=== PATIENT | male | born 1950 | race Caucasian/White ===

== ENCOUNTER 2024-01-19 07:25 | Inpatient (IN) | payer MEDICARE, SELFPAY ==
[2024-01-19] VITALS (16 sets, daily range): BP systolic 98–186; BP diastolic 62–93; PULSE 71–96; RESP 13–24; TEMP 36.6–37.1; O2SAT 92–99
--- NOTE | ~2024-01-19 | CT_ITS ---
EXAMINATION: CT abdomen pelvis w con DATE: 01/19/2024 08:14 INDICATION: Lower quadrant abdominal pain and nausea TECHNIQUE: Computed tomography (CT) of the abdomen and pelvis was performed with 100 mL Omnipaque-350 intravenous contrast. Automated exposure control and iterative reconstruction technique were employe d. The dose-length product was 1260.11 mGy-cm. COMPARISON: None FINDINGS: Mild discoid atelectasis at the anterobasilar left lower lobe. Heart size is normal. Atherosclerotic coronary artery calcifications. No pericardial or pleural effusion. Diffuse hepatic steatosis. Gallbl adder, spleen, pancreas, bilateral adrenal glands are normal. Couple small bilateral renal cysts the larger on the right measuring 6 mm. There is moderate colonic diverticulosis with a sigmoid predomina nce. There is no adjacent inflammatory change to suggest diverticulitis. No bowel obstruction. There is periappendiceal inflammatory stranding and nearby 2.5 x 1.9 x 1.0 cm nonorganized appearing fluid collection consistent with acute appendicitis. No abscess or free intraperitoneal gas. Prostatomegaly . Bladder is normal. No pathologically enlarged abdominal or pelvic lymphadenopathy. Mild lumbar and lower thoracic spondylosis. IMPRESSION: 1. Acute appendicitis. Reviewed, dictated and finalized at location A. IMPRESSION: 1. Acute appendicitis.
[2024-01-19 07:46] LABS: Basophils Percent Auto 0.2 % (0.2-1.2); Hematocrit 45.1 % (42.0-52.0); Hemoglobin 15.3 g/dL (14.0-18.0); Immature Granulocyte Absolute 0.06 K/mm3 (0.00-0.031); Immature Granulocyte Percent A 0.5 % (0-0.5); Lymphocytes Absolute Auto 0.46 K/mm3 (0.9-3.2); Lymphocytes Percent Auto 3.6 % (18.3-44.2); Mean Corpuscular HGB Conc 33.9 g/dl (32-36); Mean Corpuscular Hemoglobin 29.2 pg (26-34); Mean Corpuscular Volume 86.1 fl (80-100); Mean Platelet Volume 9.9 fl (7.4-10.4); Monocytes Absolute Auto 0.8 K/mm3 (0.1-0.6); Monocytes Percent Auto 6.1 % (2.6-8.5); Neutrophils Absolute Auto 11.4 K/mm3 (1.3-6.7); Neutrophils Percent Auto 89.6 % (45.5-73.1); Platelet Count Result 227 k/mm3 (150-375); Red Blood Count 5.24 M/mm3 (4.6-6.20); Red Cell Distribution Width 12.6 % (11.5-14.5); White Blood Count 12.8 K/mm3 (4.5-10.0)
[2024-01-19 07:56] LABS: Alanine Aminotransferase 17 U/L (6-50); Albumin Level 4.8 g/dL (3.5-5.1); Alkaline Phosphatase 69 U/L (38-126); Anion Gap 12 mmol/L (4-12); Aspartate Amino Transferase 22 U/L (17-59); Bilirubin,Total 2.2 mg/dL (0.2-1.3); Blood Urea Nitrogen 15 mg/dL (9-20); Calcium 9.1 mg/dL (8.4-10.2); Carbon Dioxide 24 mmol/L (22-30); Chloride 100 mmol/L (98-107); Estimated CRCL calculation 93 ml/min; Estimated Glomerular Filt Rate > 60; Glucose 153 mg/dL (65-110); Lipase 53 U/L (23-300); Potassium 3.9 mmol/L (3.4-5.0); Sodium 136 mmol/L (137-145)
--- NOTE | 2024-01-19 07:59 | ED.ABDPAIN ---
HPI - Abdominal Pain General Chief Complaint: Abdominal Pain Stated Complaint: right lower abdominal pain Time Seen by Provider: 01/19/24 07:26 History of Present Illness HPI narrative: Patient is a 73-year-old male who presents the ER with right lower quadrant abdominal pain. Ongoing for 2 days. Sharp. Worse with movement. Better with rest. No urinary symptoms. No GI symptoms. Denies fevers or chills. No known injury. No radiation. Related Data Allergies Allergy/AdvReac Type Severity Reaction Status Date / Time No Known Allergies Allergy Mild Unverified 03/17/18 10:08 Review of Systems Review of Systems: All systems reviewed & are unremarkable except as noted in HPI and below Constitutional: Constitutional: Reports no additional constitutional complaints ENT: Reports system reviewed and no additional complaints, except as documented Cardiovascular: Cardiovascular: Reports no additional cardiovascular complaints Respiratory: Respiratory: Reports no additional respiratory complaints Gastrointestinal: Gastrointestinal: Reports abdominal pain, Denies constipation, Denies diarrhea, Denies nausea and Denies vomiting Genitourinary: Genitourinary: Reports no additional male genitourinary complaints PMFSH Past Medical History Medical History (Updated 01/19/24 @ 18:06 by Gilmar Muñiz MD) Hypertension Obesity Surgical History Surgical History H/O excision of ganglion cyst Exam Narrative: GENERAL: Well-appearing, well-nourished, and in no acute distress. HEAD: Normocephalic, atraumatic. ENT: Mucous membranes moist. CHEST: Clear to auscultation. No respiratory distress. HEART: Regular rate and rhythm. Normal peripheral pulses. ABDOMEN: Soft, TTP to the RLQ, nondistended. EXTREMITIES: Normal range of motion. No edema. SKIN: Warm, dry, no rash. NEURO: Alert and oriented x3. PSYCH: Normal mood and affect. Course Course Emergency Course: Informed of results. Discussed with surgery. IV zosyn. OR today. Patient NPO since last night. Vital Signs Vital signs: Vital Signs Temperature 98.8 F 01/19/24 07:29 Pulse Rate 94 01/19/24 07:29 Respiratory Rate 20 01/19/24 07:29 Blood Pressure 153/63 H 01/19/24 07:29 Pulse Oximetry 97 01/19/24 07:29 Oxygen Delivery Room Air 01/19/24 07:29 Temperature 98 F 01/19/24 17:56 Pulse Rate 92 01/19/24 17:56 Respiratory Rate 14 01/19/24 17:56 Blood Pressure 149/75 H 01/19/24 17:56 Pulse Oximetry 99 01/19/24 17:56 Oxygen Delivery Simple Face Mask 01/19/24 17:56 Oxygen Flow Rate 10 01/19/24 17:56 MDM - Abdominal Pain Lab Data 01/19/24 07:37 01/19/24 07:37 Labs: Lab Results 01/19/24 01/19/24 Range/Units 07:37 08:40 WBC 12.8 H (4.5-10.0) K/mm3 RBC 5.24 (4.6-6.20) M/mm3 Hgb 15.3 (14.0-18.0) g/dL Hct 45.1 (42.0-52.0) % MCV 86.1 (80-100) fl MCH 29.2 (26-34) pg MCHC 33.9 (32-36) g/dl RDW 12.6 (11.5-14.5) % Plt Count 227 (150-375) k/mm3 MPV 9.9 (7.4-10.4) fl Immature Gran % (Auto) 0.5 (0-0.5) % Neut % (Auto) 89.6 H (45.5-73.1) % Lymph % (Auto) 3.6 L (18.3-44.2) % [place] % (Auto) 6.1 (2.6-8.5) % Eos % (Auto) 0.0 (0-4.4) % Baso % (Auto) 0.2 (0.2-1.2) % Lymph # (Auto) 0.46 L (0.9-3.2) K/mm3 [place] # (Auto) 0.8 H (0.1-0.6) K/mm3 Eos # (Auto) 0.0 (0-0.3) K/mm3 Baso # (Auto) 0.0 (0.0-0.1) K/mm3 Abs Immat Gran (auto) 0.06 H (0.00-0.031) K/mm3 Absolute Neuts (auto) 11.4 H (1.3-6.7) K/mm3 Absolute Nucleated RBC 0.000 (0.0-0.012) K/mm3 Nucleated RBC % 0.0 (0.0-0.2) % Sodium 136 L (137-145) mmol/L Potassium 3.9 (3.4-5.0) mmol/L Chloride 100 (98-107) mmol/L Carbon Dioxide 24 (22-30) mmol/L Anion Gap 12 (4-12) mmol/L BUN 15 (9-20) mg/dL Creatinine 0.80 (0.7-1.3) mg/dL Estim Creat Clear Calc 93 ml/min Estimated G
[2024-01-19 08:50] LABS: Appearance Urine Clear (Clear); Bilirubin Urine Negative (Negative); Blood Urine Negative (Negative); Color Urine Yellow (Yellow); Glucose Urine UA Negative (Negative); Ketones Urine 1+ mg/dL (Negative); Leukocyte Esterase Ur Negative LEU/UL (Negative); Nitrate Urine Negative (Negative); Protein Urine Negative (Negative); Specific Grav Ur 1.036 (1.001-1.035)
[2024-01-19 08:54] LABS: Add Urine Microscopic? NO
--- NOTE | 2024-01-19 10:12 | PM.IMHP ---
H&P: HPI History of Present Illness Date/Time: 01/19/24 10:12 Chief Complaint: Acute appendicitis Narrative: The patient is a 73-year-old male presenting to the emergency department complaining lower, right greater left. Patient reports pain started yesterday and been progressively worsening. The patient reports the pain was more diffuse in nature beginning, but now is localized right quadrant. The patient reports associated poor appetite and nausea. Patient denies any fevers chills. Patient denies previous episodes. Workup, including imaging, significant for acute appendicitis. Review of Systems Review of Systems: All systems reviewed & are unremarkable except as noted in HPI and below PMFSH Past Medical History Medical History (Updated 01/19/24 @ 10:15 by Kamini Baires MD) Hypertension Surgical History Surgical History H/O excision of ganglion cyst Meds Home Medications and Allergies Allergies Allergy/AdvReac Type Severity Reaction Status Date / Time No Known Allergies Allergy Mild Unverified 03/17/18 10:08 Vital Signs Vital Signs - 24 hr 01/19/24 07:29 01/19/24 08:42 Temperature 37.1 C Pulse Rate 94 92 Respiratory Rate 20 24 H Blood Pressure 153/63 H 186/90 H Pulse Oximetry 97 98 Oxygen Delivery Room Air Exam Const: General: cooperative, acute distress mild, tired appearing and uncomfortable HENMT: Head: normal to inspection, normocephalic and atraumatic Eyes: General: appearance normal, both eyes and all related structures Neck: Neck: normal visual inspection, full ROM and no lymphadenopathy Resp: Auscultation: clear to auscultation bilaterally Cardio: Rate: regular rate Rhythm: regular rhythm GI: Inspection: normal to inspection and distended GI Palp: Yes abdominal tenderness, Yes Soft to palpation, Yes Tenderness to palpation present (GI), Yes Guarding due to palpation present (GI) and No Rigid due to palpation Back/Spine/Pelvis: Back: no CVA tenderness Skin: General skin exam: normal color and no rashes or lesions noted Neuro: General: patient oriented x3 and CN's II-XI intact bilaterally Extrem: General: normal to inspection and full ROM H&P: Results Labs Labs: Short CBC 01/19/24 Range/Units 07:37 WBC 12.8 H (4.5-10.0) K/mm3 Hgb 15.3 (14.0-18.0) g/dL Hct 45.1 (42.0-52.0) % Plt Count 227 (150-375) k/mm3 BMP 01/19/24 07:37 Sodium 136 L Potassium 3.9 Chloride 100 Carbon Dioxide 24 BUN 15 Creatinine 0.80 Glucose 153 H Calcium 9.1 Liver Function 01/19/24 Range/Units 07:37 Total Bilirubin 2.2 H (0.2-1.3) mg/dL AST 22 (17-59) U/L ALT 17 (6-50) U/L Alkaline Phosphatase 69 (38-126) U/L Albumin 4.8 (3.5-5.1) g/dL Urine 01/19/24 Range/Units 08:40 Urine Color Yellow (Yellow) Urine Appearance Clear (Clear) Urine pH 5.0 (5.0-9.0) Ur Specific [place] 1.036 H (1.001-1.035) Urine Protein Negative (Negative) mg/dL Urine Glucose (UA) Negative (Negative) mg/dL Imaging CT scan - abdomen: My impression: Acute appendicitis with some surrounding free fluid Assessment and Plan Assessment and plan (1) Acute appendicitis: Code(s): K35.80 - Unspecified acute appendicitis Status: Acute Assessment and Plan: NPO, IV antibiotics, IV fluids, OR for emergent appendectomy (2) Hypertension: Code(s): I10 - Essential (primary) hypertension Status: Acute Assessment and Plan: stable, continue medications
--- NOTE | 2024-01-19 10:16 | WPDHPUPDATE1 ---
History and Physical Update Update Date/Time: 01/19/24 10:16 History and Physical has been reviewed, including an updated exam of the patient. There are NO changes in the patient's condition. Risks, benefits, and alternatives have been discussed and questions answered. Patient agrees to proceed with procedure.
[2024-01-19] MEDS: PIPERACILLN/TAZ 3.375GM/NS50ML 3.375 GM/50 ML BAG IVPB ×3 (10:46→22:16)
[2024-01-19] MEDS: LACTATED RINGERS 1,000 ML 30 ML IV CONT ×2 (13:25→17:56)
--- NOTE | 2024-01-19 14:45 | WPDANESEPPF ---
Anes - Initial Pre Proc Eval Procedure: Operation Date: 01/19/24 15:00 Proposed Procedures p Laparoscopic Appendectomy - Kamini Baires MD Date/Time: 01/19/24 14:45 Surgeon: Kamini Baires MD Pre Op Diagnosis: right lower abdominal pain Patient Data Age: 73 Gender: M Height: 1.8 m Weight: 112.2 kg Last Vital Signs Temp 37.0 C 01/19/24 12:45 Pulse 96 01/19/24 12:45 Resp 23 H 01/19/24 12:12 BP 155/72 H 01/19/24 12:45 Pulse Ox 97 01/19/24 12:45 O2 Del Method Autopap 01/19/24 12:45 Allergies Allergy/AdvReac Type Severity Reaction Status Date / Time No Known Allergies Allergy Mild Unverified 03/17/18 10:08 Laboratory Tests 01/19/24 01/19/24 07:37 08:40 WBC 12.8 H K/mm3 (4.5-10.0) RBC 5.24 M/mm3 (4.6-6.20) Hgb 15.3 g/dL (14.0-18.0) Hct 45.1 % (42.0-52.0) MCV 86.1 fl (80-100) MCH 29.2 pg (26-34) MCHC 33.9 g/dl (32-36) RDW 12.6 % (11.5-14.5) Plt Count 227 k/mm3 (150-375) MPV 9.9 fl (7.4-10.4) Immature Gran % (Auto) 0.5 % (0-0.5) Neut % (Auto) 89.6 H % (45.5-73.1) Lymph % (Auto) 3.6 L % (18.3-44.2) [place] % (Auto) 6.1 % (2.6-8.5) Eos % (Auto) 0.0 % (0-4.4) Baso % (Auto) 0.2 % (0.2-1.2) Lymph # (Auto) 0.46 L K/mm3 (0.9-3.2) [place] # (Auto) 0.8 H K/mm3 (0.1-0.6) Eos # (Auto) 0.0 K/mm3 (0-0.3) Baso # (Auto) 0.0 K/mm3 (0.0-0.1) Abs Immat Gran (auto) 0.06 H K/mm3 (0.00-0.031) Absolute Neuts (auto) 11.4 H K/mm3 (1.3-6.7) Absolute Nucleated RBC 0.000 K/mm3 (0.0-0.012) Nucleated RBC % 0.0 % (0.0-0.2) Sodium 136 L mmol/L (137-145) Potassium 3.9 mmol/L (3.4-5.0) Chloride 100 mmol/L (98-107) Carbon Dioxide 24 mmol/L (22-30) Anion Gap 12 mmol/L (4-12) BUN 15 mg/dL (9-20) Creatinine 0.80 mg/dL (0.7-1.3) Estim Creat Clear Calc 93 ml/min Estimated GFR > 60 (59 - ) Glucose 153 H mg/dL (65-110) Calcium 9.1 mg/dL (8.4-10.2) Total Bilirubin 2.2 H mg/dL (0.2-1.3) AST 22 U/L (17-59) ALT 17 U/L (6-50) Alkaline Phosphatase 69 U/L (38-126) Total Protein 8.0 g/dL (6.3-8.2) Albumin 4.8 g/dL (3.5-5.1) Lipase 53 U/L (23-300) Urine Color Yellow (Yellow) Urine Appearance Clear (Clear) Urine pH 5.0 (5.0-9.0) Ur Specific [place] 1.036 H (1.001-1.035) Urine Protein Negative mg/dL (Negative) Urine Glucose (UA) Negative mg/dL (Negative) Urine Ketones 1+ H mg/dL (Negative) Ur Blood (Man) Negative (Negative) Urine Nitrate Negative (Negative) Urine Bilirubin Negative (Negative) Urine Urobilinogen 1.0 mg/dL (<2.0) Leukocyte Esterase Rfl Negative BONITA/UL (Negative) Patient hx anesthesia problems: none Family hx anesthesia problems: none Results Review: All pre-operative results and documents have been reviewed as part of the pre-operative evaluation. [facility] Past Medical History Medical History (Updated 07/22/24 @ 14:45 by Rodrigue Valenzuela MD) Hypertension Obesity Surgical History Surgical History H/O excision of ganglion cyst Anes - Eval Final PreProcedure Day of Procedure 01/19/24 14:45 Patient weight: obese Lungs: clear to auscultation Airway: Mallampati scale class II Neurological: alert and oriented Last oral intake: >/= 8 hours ASA classification: III Emergent: no Anesthetic plan: proceed Anesthesia type and monitoring: general ETT and standard monitoring Results Review: All pre-operative results and documents have been reviewed as part of the pre-operative evaluation. Informed Consent: The patient's anesthetic plan and its attendant risks and benefit
[2024-01-19] MEDS: BUPIVACAINE/EPINEPHRINE 0.5% 50 ML VIAL 30 ML INFILTRATE (16:36)
[2024-01-19] MEDS: KETOROLAC 30 MG/ML VIAL (*BKC) IV PUSH (17:37)
--- NOTE | 2024-01-19 17:50 | P.OP_ITS ---
Procedure Note - Detailed Date of Procedure 01/19/24 Pre-op Diagnosis acute appendicitis Post-op Diagnosis Other ( acute perforated appendicitis) Procedure Performed laparoscopic appendectomy, extensive lysis of adhesions Surgeon Kamini Baires MD Anesthesia General and Local Indications 73-year-old male presenting to the emergency department complaining lower abdominal pain. Workup, including imaging, is significant for acute appendicitis with surrounding luciano appendiceal fluid. Findings Acute perforated appendicitis with free fluid, retrocecal appendix was severe inflammation of the terminal ileum, left lower quadrant adhesions from likely previous diverticulitis Description of Procedure The patient was taken to the operating room and placed in the supine position. After adequate induction of general anesthesia, the patient was prepped and draped in the normal sterile fashion. A time-out was then done to verify the patient's identity, as well as the procedure being performed. I began by making a 5 mm incision in the infraumbilical region, through this a Veress needle was placed in the peritoneal cavity. CO2 gas was then insufflated and after adequate pneumoperitoneum was achieved the Veress needle was removed. Then placed a 5 mm Optiview trocar under direct visualization into the peritoneal cavity. I then insufflated through this trocar site and the endoscope was placed into the trocar. Under direct visualization, I placed further 5 mm supraumbilical port. There was noted to be a large amount of adhesions to the left lower quadrant likely secondary to previous diverticulitis. Given that I needed to place a trocar at this site, I took down these adhesions both sharply and bluntly with the Bovie cautery. I was then able to place a 12 mm left lower quadrant port under direct visualization. At this point I identified the cecum and noted that there was a lot of inflammation to the lateral right sidewall. The terminal ileum was densely adhered to this area as well. Using very careful and tedious dissection, I slowly took down terminal ileum from the right lateral sidewall. Upon removing the terminal ileum from the area, a moderate amount of free purulent fluid was noted. This was suctioned away. There was a large amount of inflammation in this area and it was noted that the appendix was likely retrocecal. I was able to locate the base of the appendix with the cecum. I was able to create a window between the appendix and the mesoappendix in this area. The appendix was then transected with a blue staple load. Upon following this down retrocecal, it was noted that the appendix was largely obliterated. Given these findings, I just removed the portion of the appendix that I could definitively visualize. I then placed a 15 Swedish ARISTEO drain in the right lower quadrant coming out through the right lower quadrant under direct visualization. I then desufflated the abdomen. The fascia of the 12 mm port site was closed with an 0 Vicryl [id number] suture. All port sites were closed with 4-0 Monocryl subcuticular suture. Dermabond was placed on all wounds. The patient tolerated the procedure well and will be transferred to the recovery room in stable condition. Please note that given the difficulty with the lysis of adhesions, inflammation, retrocecal appendix that this case was much more difficult than the average appendectomy and took approximately 3 times longer. Estimated Blood Loss 20 Drains No Packing No Pathology Yes Complications No immediate complications Condition Stable Disposition PACU [facility] Billing Surgery - Charge Forward: Surgery Billing
[2024-01-19] MEDS: LACTATED RINGERS 1,000 ML 100 ML IV CONT (22:10)
[2024-01-19] MEDS: FAMOTIDINE 20 MG/2 ML VIAL IV PUSH (22:10)
[2024-01-20 02:03] VITALS: BP 111/53; PULSE 59; RESP 18; TEMP 36.3; O2SAT 97
[2024-01-20 05:01] VITALS: BP 140/65; PULSE 58; RESP 20; TEMP 36.7; O2SAT 96
[2024-01-20] MEDS: PIPERACILLN/TAZ 3.375GM/NS50ML 3.375 GM/50 ML BAG IVPB ×2 (05:15→11:23)
[2024-01-20 06:20] LABS: Hematocrit 36.6 % (42.0-52.0); Hemoglobin 12.5 g/dL (14.0-18.0); Mean Corpuscular HGB Conc 34.2 g/dl (32-36); Mean Corpuscular Hemoglobin 29.7 pg (26-34); Mean Corpuscular Volume 86.9 fl (80-100); Platelet Count Result 177 k/mm3 (150-375); Red Blood Count 4.21 M/mm3 (4.6-6.20); Red Cell Distribution Width 12.7 % (11.5-14.5); White Blood Count 13.9 K/mm3 (4.5-10.0)
[2024-01-20 06:31] LABS: Anion Gap 6 mmol/L (4-12); Blood Urea Nitrogen 18 mg/dL (9-20); Calcium 8.7 mg/dL (8.4-10.2); Carbon Dioxide 29 mmol/L (22-30); Chloride 100 mmol/L (98-107); Estimated CRCL calculation 77 ml/min; Estimated Glomerular Filt Rate > 60; Glucose 137 mg/dL (65-110); Potassium 3.9 mmol/L (3.4-5.0); Sodium 135 mmol/L (137-145)
[2024-01-20 09:01] VITALS: BP 135/78; PULSE 66; RESP 16; TEMP 36.6; O2SAT 100
[2024-01-20] MEDS: FAMOTIDINE 20 MG/2 ML VIAL IV PUSH (09:25)
[2024-01-20] MEDS: ENOXAPARIN 40 MG/0.4 ML SYRINGE SUB-Q (09:25)
[2024-01-20] MEDS: LACTATED RINGERS 1,000 ML 100 ML IV CONT (09:31)
[2024-01-20 13:01] VITALS: BP 141/76; PULSE 68; RESP 18; TEMP 36.5; O2SAT 94
--- NOTE | 2024-01-22 09:07 | PM.DS ---
DS: Admitting Diagnosis Discharge Date 01/20/24 Admitting Diagnosis Acute appendicitis DS: Discharge Diagnosis Discharge Diagnosis (1) Acute perforated appendicitis: Code(s): K35.32 - Acute appendicitis with perforation, localized peritonitis, and gangrene, without abscess Status: Acute Assessment and Plan: status post appendectomy, drain removed at bedside, home with p.o. antibiotics and analgesia, follow-up 2 weeks DS: Summary Hospital Course Reason for hospitalization: acute perforated appendicitis Hospital Course: The patient is a 73-year-old male presenting to the emergency department complaining of lower abdominal pain. Workup, including imaging, was significant for acute appendicitis. The patient was emergently taken to the operating room that afternoon and laparoscopic appendectomy was performed. During the procedure, it was noted that the patient had a perforation the appendix with a large amount of the appendix actually oblique. Please see full operative report for details. The patient had a drain left and was admitted postoperatively for continued IV antibiotics. On postoperative day 1. , the patient reports that he felt much better and was able to tolerate a diet. He was up and ambulating without issue. He reports his pain is well controlled with p.o. analgesia. Given these findings, the drain was removed and the patient will be discharged home with p.o. antibiotics and analgesia. He will be sent home with instructions for local wound care. He will follow up with me in 2 weeks. Status at Discharge Functional status at discharge: independent ambulation Overall status at discharge: patient is progressing back to baseline Time Spent with Patient Time attestation: Total time spent providing and/or coordinating discharge services: Exam Const: General: cooperative, comfortable and no acute distress Resp: Auscultation: clear to auscultation bilaterally Cardio: Rate: regular rate Rhythm: regular rhythm GI: Inspection: normal to inspection, distended and incision GI Palp: Yes abdominal tenderness and Yes Soft to palpation DS: Data Data Completed and Pending Completed studies during hospitalization: Pending at discharge 01/19/24 16:51 Surgical [PTH] Routine Discharge Plan Discharge Attending physician on discharge: Kamini Baires Consulting providers: Hasmukh Boogie; Rodrigue Valenzuela Discharging Clinician: Kamini Baires Patient Disposition: Home, Self-Care Activity: may shower and as tolerated Diet: as tolerated Wound Care Instructions: incision open to air Discharge Instructions: DISCHARGE INSTRUCTION SHEET FOR HERNIA, GALLBLADDER AND APPENDIX SURGERIES DR. BAIRES PATIENT TO TAKE HOME 1. May shower in 24 hours, no soaking in bath x 2weeks. 2. Call office for: Wound increasingly painful or bleeding Vomiting Fever of greater than 101 degrees 3. If no bowel movement for three days, take 1 oz. (30 ml) Milk of Magnesia or MiraLax 17g 1 to 2 times daily. 4. No heavy lifting > 10-15 pounds x 6 weeks for hernia repairs and 2 weeks for laparoscopic cholecystectomy or appendectomy. 5. No driving for 3 days or while taking narcotic pain medications. 6. Ice to surgical site for 48 hours (30 min on, then 30 min off). 7. Up walking 10-30 minutes three times per day. 8. Resume previous home medications. 9. Follow-up 10-14 days in office for wound check or as previously scheduled. ([id number]) 10. Oral pain medications prescription to be sent to pharmacy. Take Tylenol 500mg every 6 hours and Ibuprofen 600mg every 6 hours for the first 2 days, then as needed. 11. NUTRITION: Start out by drinking fluids and increase your diet as tolerated. If you experience nausea, try dry toast, crackers, and 7-UP. If nausea or vomiting persists, contact your surgeon?s office. 12. Gallbladders-Low Fat
== END 2024-01-20 14:04 | disposition home or self-care (01) | DRG 337 ==
LOC: ANHED 08:59 → ANHSURGERY 09:52 → ANH3MEDSUR 19:45
PROVIDERS: Admitting Provider Surgery; Emergency Provider Emergency Medicine; PCP Internal Medicine; Visit Provider Surgery
PROC: 0DTJ4ZZ Resection of Appendix, Percutaneous Endoscopic Approach (ICD-10-PCS; CPT 44970; principal; 2024-01-19 15:00)
DX: K35.32 Acute appendicitis with perforation, localized peritonitis, and gangrene, without abscess (principal); I10 Essential (primary) hypertension; E66.9 Obesity, unspecified
CPT/HCPCS: 36415; 74177; 80048; 80053; 81003; 83690; 85025; 85027; 88304; 96361; 96365; 96375; 96376; 99285; J1100; J1170; J1650; J1885; J2250; J2405; J2543; J3010; J7030; J7120; Q9967

== ENCOUNTER 2025-02-23 00:18 | Day surgery (SDC) | payer MEDICARE, SELFPAY ==
[2025-02-08 14:46] VITALS: BMI 35.4
[2025-02-23 06:21] VITALS: BP 160/91; PULSE 72; RESP 16; TEMP 36.2; O2SAT 96; BMI 37.3
[2025-02-23] MEDS: LACTATED RINGERS 1,000 ML 150 ML IV CONT (06:34)
--- NOTE | 2025-02-23 07:31 | WPDANESEPPF ---
Anes - Initial Pre Proc Eval Procedure: Operation Date: 02/23/25 07:30 Proposed Procedures p Screening Colonoscopy - Eliecer Rodriguez MD Date/Time: 02/23/25 07:31 Surgeon: Eliecer Rodriguez MD Pre Op Diagnosis: Screening,personal hx of colon polyps Patient Data Age: 74 Gender: M Height: 1.75 m Weight: 114.7 kg Last Vital Signs Temp 97.1 F L 02/23/25 06:21 Pulse 72 02/23/25 06:21 Resp 16 02/23/25 06:21 BP 160/91 H 02/23/25 06:21 Pulse Ox 96 02/23/25 06:21 O2 Del Method Room Air 02/23/25 06:21 Allergies Allergy/AdvReac Type Severity Reaction Status Date / Time No Known Allergies Allergy Mild Verified 02/23/25 06:20 Home Medications ?Medication ?Instructions ?Recorded ?Confirmed ?Type aspirin 81 mg chewable tablet 81 mg PO DAILY 01/19/24 02/23/25 History lisinopril 20 mg tablet 20 mg PO DAILY 01/19/24 02/23/25 History Patient hx anesthesia problems: none Family hx anesthesia problems: none Results Review: All pre-operative results and documents have been reviewed as part of the pre-operative evaluation. COUNT INCLUDES THE [facility] Past Medical History Medical History Hypertension Obesity Surgical History Surgical History H/O excision of ganglion cyst History of laparoscopic appendectomy laparoscopic appendectomy, extensive lysis of adhesions 01/19/24 Social History Social History (Updated 02/03/24 @ 09:59 by Lily Wells RN) Years smoked: 50 Smoking status: Never smoker Tobacco type: cigarettes Alcohol intake: current Alcohol use details: 6 per year Substance use: never Substance use type: does not use Living arrangements: with family Spiritual care concerns: No Anes - Eval Final PreProcedure Day of Procedure 02/23/25 07:31 Patient weight: obese Heart: regular rate and rhythm Lungs: clear to auscultation Airway: Mallampati scale class II Neurological: alert and oriented Last oral intake: >/= 8 hours ASA classification: II Emergent: no Anesthetic plan: proceed Anesthesia type and monitoring: general GIVS and standard monitoring Results Review: All pre-operative results and documents have been reviewed as part of the pre-operative evaluation. Informed Consent: The patient's anesthetic plan and its attendant risks and benefits were discussed with the patient/family/POA. Questions were solicited and answers provided to the satisfaction of the patient/family/POA.
--- NOTE | 2025-02-23 07:32 | PM.IMHP ---
H&P: HPI History of Present Illness Date/Time: 02/23/25 07:32 Chief Complaint: Screening colonoscopy Narrative: This is the patient's second colonoscopy. There are no GI symptoms and there is no family history of colorectal cancer. Review of Systems Review of Systems: All systems reviewed & are unremarkable except as noted in HPI and below PMFSH Past Medical History Medical History Hypertension Obesity Surgical History Surgical History H/O excision of ganglion cyst History of laparoscopic appendectomy laparoscopic appendectomy, extensive lysis of adhesions 01/19/24 Social History Social History (Updated 02/03/24 @ 09:59 by Lily Wells RN) Years smoked: 50 Smoking status: Never smoker Tobacco type: cigarettes Alcohol intake: current Alcohol use details: 6 per year Substance use: never Substance use type: does not use Living arrangements: with family Spiritual care concerns: No Meds Home Medications and Allergies Home Medications ?Medication ?Instructions ?Recorded ?Confirmed ?Type aspirin 81 mg chewable tablet 81 mg PO DAILY 01/19/24 02/23/25 History lisinopril 20 mg tablet 20 mg PO DAILY 01/19/24 02/23/25 History Allergies Allergy/AdvReac Type Severity Reaction Status Date / Time No Known Allergies Allergy Mild Verified 02/23/25 06:20 Vital Signs Vital Signs - 24 hr 02/23/25 06:21 Temperature 97.1 F L Pulse Rate 72 Respiratory Rate 16 Blood Pressure 160/91 H Pulse Oximetry 96 Oxygen Delivery Room Air Exam Const: General: cooperative and healthy appearing Resp: Effort & Inspection: normal respiratory effort and able to speak in complete sentences Auscultation: clear to auscultation bilaterally Cardio: Rate: regular rate Rhythm: regular rhythm GI: Inspection: normal to inspection GI Palp: No No hepatosplenomegaly present Auscultation: normal bowel sounds Rectal Exam: deferred Skin: General skin exam: normal color Psych: Appearance: grossly normal Mental Status: mental status grossly normal Assessment and Plan Assessment and plan (1) Encounter for screening colonoscopy: Code(s): Z12.11 - Encounter for screening for malignant neoplasm of colon Status: Acute Assessment and Plan: The patient is deemed a good candidate for the procedure. Consent signed. Will proceed.
[2025-02-23] MEDS: SIMETHICONE ORAL SUSPENSION 20 MG/0.3 ML 30 ML BOTTLE 0.6 ML IRRIGATION (07:44)
--- NOTE | 2025-02-23 07:52 | S_PTH ---
PATIENT: Garett Mcguire LOC: [facility] Lee#:[id number] AGE/SX: 74/M ROOM: RE02/23/[address]: Eliecer Rodriguez MD : 1950 BED: DIS: 02/23/2025 SPEC #: [id number] RECD: 02/23/25 08:14 STATUS: BART REQ #: [id number] JOSE: 02/23/25 07:[address]: Eliecer Rodriguez DEPT: [facility] Surgical RECD BY: Mary Redman ENTERED: 02/23/25 08:15 SP TYPE: Surgical OTHR DR: Burt Hernandez, Tissues: A - Colon Polypectomy Procedures: Hematoxylin and Eosin Stain Gross and Microscopic Level 4
[2025-02-23 07:54] VITALS: BP 114/48; PULSE 57; RESP 28; O2SAT 99
[2025-02-23 08:04] VITALS: BP 121/59; PULSE 60; RESP 25; O2SAT 99
[2025-02-23 08:14] VITALS: BP 125/54; PULSE 54; RESP 19; O2SAT 99
== END 2025-02-23 08:27 | disposition home or self-care (01) ==
PROVIDERS: PCP Internal Medicine; Referring Provider Internal Medicine; Visit Provider Internal Medicine Gastroenterology
PROC: 0DJD8ZZ Inspection of Lower Intestinal Tract, Via Natural or Artificial Opening Endoscopic (ICD-10-PCS; CPT 45378; principal; 2025-02-23 07:30)
DX: Z12.11 Encounter for screening for malignant neoplasm of colon (principal); K63.5 Polyp of colon; K64.8 Other hemorrhoids; K57.30 Diverticulosis of large intestine without perforation or abscess without bleeding; I10 Essential (primary) hypertension; E66.9 Obesity, unspecified; Z68.37 Body mass index [BMI] 37.0-37.9, adult; Z79.82 Long term (current) use of aspirin; Z98.890 Other specified postprocedural states
CPT/HCPCS: 45385; 88305; J2003; J2704; J7120